=== PATIENT | male | born 1945 | race Caucasian/White ===

== ENCOUNTER → 2016-11-26 | Day surgery (SDC) | payer MEDICARE, OTHER ==
[~2016-11-26] VITALS: Ht 190.5 cm; Wt 145.6 kg
[~2016-11-26] MED LIST: ASPI325T32 PO; ATOR40TA69 PO; AZIT500T5 PO; CHOL500050 PO; CLOP75TA28 PO; GLPZ5T PO; IPRA4AER IH; Lactated Ringer's 1,000 ML IV SCH; METO25TA6 PO; MOME13HF IH; MeTOProlol 1 mg/mL 5 mL Inj ONE; MetoCLOpramide 5 mg/mL 2 mL Inj IVPUSH PRN; NITR0.4T SL; Ondansetron 2 mg/mL 2 mL Inj IVPUSH PRN; PANT40TA3 PO; POTA2TAB16 PO; Propofol 10,000 mCg/mL 20 mL Inj ONE; SILD20TA14 PO; TAMS0.4C29 PO; calcium/mag/zinc PO; testosterone TOPICAL
[2016-11-26 08:42] VITALS: BP 130/79; PULSE 61; RESP 17; O2SAT 95
--- NOTE | 2016-11-26 09:22 | PCM.HPANE ---
Patient Data Date of Service: Nov 26, 2016 Surgeon Admitting Provider: Attending Provider:Jenny Osorio MD Primary Care Physician:Vikas Castellano DO Other Provider:Gloria Montes Anesthesia Reason for Visit History Of Adenomatous Polyp Of Colon Ht/WT & BMI Height (Feet): 6 Height (Inches): 3 Weight (Kilograms): 145.6 Body Mass Index 39.00 Allergies Coded Allergies: No Known Allergies (Verified Allergy, Unknown, 09/06/14) Past Anesthesia History Anesthesia History: Denies:: Abnormal Airway, Anesthesia Reactions, Difficult Intubation, Fam Anesthesia Reaction, Fam Malignant Hypertherm, Malignant Hyperthermia Diabetes History Hx Diabetes?: Yes (DIET CONTROLLED PER PT) Current Bedside Blood Glucose: 185 MRSA MRSA: Yes (NECK-8 YRS AGO ) Medications Blood Thinner: Aspirin, Plavix Last Dose Blood Thinner: Nov 21, 2016 Home Meds Incl Beta Bernardo: Yes (METOPROLOL) Active Scripts Aspirin 325 Mg Rietnk886 Mg PO DAILY CHEST PAIN #90 BOTTLE Ref 3 Prov:Mayito Cazares MD 01/04/16 Nitroglycerin SL (Nitrostat)0.4 Mg Tab.subl0.4 Mg SL Q5MIN PRN For Chest Pain IF SBP > 90 #25 TAB.SL Ref 2 DO NOT TAKE VIAGRA OR NITROGLYCERIN SUBLINGUAL TAB WITHIN 24 HOURS OF EACH OTHER. MAY CAUSE ! Prov:Mayito Cazares MD 01/04/16 Metoprolol Tartrate 25 Mg Hrkgzi96 Mg PO BID #180 TABLET Ref 3 Prov:Mayito Cazares MD 01/04/16 Atorvastatin Calcium 40 Mg Tpkeix97 Mg PO HS #90 TABLET Ref 3 Prov:Mayito Cazares MD 01/04/16 Clopidogrel 75 Mg Ydemuo46 Mg PO DAILY #90 TABLET Ref 3 Prov:Mayito Cazares MD 01/04/[address] 40 Mg Tablet.dr40 Mg PO DAILY Ref 0 11/26/16 Glipizide 5 Mg Tablet5 Mg PO DAILY 30 Days 11/26/16 Azithromycin 500 Mg Qfsaid503 Mg PO every other day Ref 0 01/02/16 Cholecalciferol (Vitamin D3) (Vitamin D3)50,000 Unit Sktlcgm12,000 Unit PO WEEKLY 01/02/16 [testosterone] No Conflict Check0.5 Topical Daily 01/02/16 Mometasone/Formoterol (Dulera 200 Mcg/5 Mcg Inhaler)13 Gm Hfa.aer.ad2 Puffs IH DAILY 01/02/16 [calcium/mag/zinc] No Conflict Check2-3 Tab PO 3-4x/wk 01/02/16 Tamsulosin ER 0.4 Mg Cap.er.24h0.4 Mg PO DAILY 30 Days Ref 0 09/06/14 Sildenafil Citrate (Sildenafil)20 Mg Lbldls62 Mg PO 09/06/14 Potassium Gluconate 500 Mg Uhgndu204 Mg PO prn 09/06/14 Albuterol/Ipratropium (Combivent Respimat Inhal [place])120 Spr/4 Gm Inhaler2 Puff IH QID/PRN #1 INH Ref 0 09/06/14 History History of ENT Problems?: Yes HEENT History: Positive for:: Cataracts (NOT ADVANCED) Denies:: Abnormal Airway Difficult Intubation Dysphagia Hearing Problem Denture Type: None Teeth Condition: Within Normal Limits Hx of Heart Problems?: Yes Cardiovascular History: Positive for:: Chest Pain Denies:: AICD Atrial Fibrillation Hypertension Pacemaker Valvular Heart Disease Other History/Comments discussing with cardiology prior to preceding in setting of PVCs in [facility] and stents placed <12 months Hx of Respiratory Problem?: Yes Respiratory History: Positive for:: Asthma (RARELY AN ISSUE) Denies:: COPD Cough Hemoptysis Pneumonia Tuberculosis Other History/Comment workup for ILD ongoing Hx Neurologic Problems?: No Neurological History: Denies:: CVA Hx of GI Problems?: Yes Hx of Problems?: No Hx Musculoskeletal Problems?: No Musculoskeletal History: Denies:: Joint Replacement Hx of Psycho/Social Problems?: No Psycho Social History: Denies:: Anxiety Hx Depression Hx Surgeries?: Yes (VASECTOMY , ANGIO PLASTY / STENTS) Hx Any Other Health Problems?: Yes Other History: Positive for:: Cancer (SKIN) History Blood Transfusions: Denies:: Blood Transfusions Hx Diabetes: Yes (DIET CONTROLLED PER PT)Bedside Blood Glucose: 185 Hx Alcohol Use: Yes (OCCASIONALLY ) Smoking Status: Never Smoker Stop/Bang Treated for Sleep Apnea?: Yes Do You Have a CPAP Machine?: No S-Snoring: Do You Snore Loudly: No T-Tired: feel tired, fatigued: No O-Obsered: Observed not breath: No P-Blood Pressure: treated: Yes B- Body Mass Index > 35 kg/m2: Yes A- Age over 50: Yes N- Neck Large Circumference: Yes WESLEY Risk Assessment: High Risk, =/>3 Yes Risk Assessment Category Category 1A: Patient has history of documented sleep apnea, and HAS NOT received any narcotic, sedative or anesthesia administration during this stay. Category 1B: Patient has history of documented sleep apnea, and HAS received any narcotic , sedative or anesthesia administration during this stay Category 2: Patient has SUSPECTED Obstructive Sleep Apnea, and HAS received any narcotic , sedative or anesthesia administration during this stay. Category 3: Patient has SUSPECTED Obstructive Sleep Apnea and HAS NOT received narcotic, sedative or anesthesia administration during this stay. Category 4: Outpatient in Procedural Areas with known sleep apnea or who screen positive for High Risk via the STOP/BANG questionnaire. Exam Exam Vital Signs Vital Signs Date Time Temp Pulse Resp B/P Pulse Ox O2 Delivery O2 Flow Rate FiO2 11/26/16 08:42 36.5 61 17 130/79 95 Room Air General Appearance: Alert, Oriented X3 HEENT/AIRWAY: MP 1 Lungs: Clear to Auscultation Heart: Exam Unremarkable Meds/Labs/Diagnostics Bedside Blood Glucose: 185 Plan Impression Patient chart reviewed, patient interviewed and anesthestic plan with risks, benefits, and alternatives discussed, and informed consent obtained. NPO per Anesth. Guidelines: Yes ASA Physical Status: ASA3 Severe Disease Anesthetic Plan: MAC Bene/Risks/Altern/Consents: Yes HP Complete Prior to Induction: Yes Anders Jackson MD Nov 26, 2016 09:22
[2016-11-26 09:53] VITALS: BP 98/72; PULSE 60; RESP 14; O2SAT 96
[2016-11-26 10:11] VITALS: BP 142/78; PULSE 60; RESP 14; O2SAT 95
[2016-11-26 10:13] VITALS: BP 139/78; PULSE 57; RESP 14; O2SAT 96
--- NOTE | 2016-11-26 10:20 | PCM.ANEP1 ---
Post Anesthesia PACU Phase 1 Assessment Vital Signs Vital Signs Date Time Temp Pulse Resp B/P Pulse Ox O2 Delivery O2 Flow Rate FiO2 11/26/16 10:13 57 14 139/78 96 Room Air 11/26/16 10:11 60 14 142/78 95 Room Air 11/26/16 09:53 60 14 98/72 96 Room Air 11/26/16 08:42 36.5 61 17 130/79 95 Room Air Anesthetic Administered: MAC Level of Alertness: Awake, talking Pain: No Nausea or Vomiting: No CV Function & Hydration Stable: Yes Airway Device: Oxygen Delivery: Room Air Lungs: Clear to Auscultation PACU Phase 2 Assessment Complications: No Follow up Care: N/A Patient Instructions Provided: N/A Anders Jackson MD Nov 26, 2016 10:20
--- NOTE | 2016-11-26 10:33 | ENDO ---
[address] [address] ENDOSCOPY PROCEDURE PATIENT: LUCY ERNANDEZ : 1945 MR#: [id number] ADMIT: 11/26/2016 JOB ID: [id number] TYPE OF PROCEDURE: Colonoscopy INDICATION: Patient with a history of adenomatous colon polyps. The patient's ASA classification, Mallampati score, and medications as per Anesthesia note. INSTRUMENT USED: [id number] PREP QUALITY: Good. PROCEDURE DETAILS: After informed consent was obtained, the patient was brought into the GI suite, where he was placed on oxygen via nasal cannula and monitored with continuous pulse oximeter, telemetry, and blood pressure monitoring. A time-out was performed. Then, he was placed in a left lateral decubitus position and medications were administered for sedation. Digital rectal exam was performed, which was limited secondary to patient's body habitus, but otherwise unremarkable. The colonoscope was then inserted into the rectum and advanced under direct visualization to the cecum, which was identified by the presence of the ileocecal valve and appendiceal orifice. Once the cecum was reached, the colonoscope was withdrawn back to the rectum. Mucosa and lumen were examined. In the rectum, retroflexion was performed. Following retroflexion, remaining air in the rectum was suctioned, and procedure was completed. FINDINGS: 1. In the cecum in the transverse colon, there was an approximately 4 mm sessile polyp that was removed with a cold snare. 2. Scattered diverticula were seen throughout the left side of the colon. IMPRESSION: 1. Transverse colon polyp. 2. Left-sided diverticulosis. RECOMMENDATIONS: 1. Fiber rich diet. 2. Repeat colonoscopy in five years. COMPLICATIONS: None. ESTIMATED BLOOD LOSS: Less than 5 mL. Cc: Vikas Castellano
--- NOTE | 2016-12-02 08:30 | PATH ---
SURGICAL PATHOLOGY Attending Physician:Brady Calle CASE STATUS: Signed Out PATIENT NAME: LUCY ERNANDEZ PID: [id number] : 1945 DATE COLLECTED:11/26/2016 00:00 SPECIMEN: Colon, Polyp CLINICAL HISTORY: 1). TRANSVERSE POLYP X 1 FINAL DIAGNOSIS: Transverse Colon, Polyp, Biopsy: Portions of tubular adenoma x2; negative for high-grade dysplasia. ICD10: K63.5 GROSS DESCRIPTION: The specimen is received in one formalin filled container labeled with the patient's name, sublabeled "transverse polyp" and consists of 2 portions of tissue which aggregate to 0.3 x 0.3 x 0.2 CM. The specimen is entirely submitted in cassette. 11/27/2016DC ICD-9 CODES: CPT CODES: 1: 18855 Electronically Signed Out Maricruz Ochoa MD [facility] Pathology [facility] [address], [place] [address] Technical component performed at [facility], [facility] [address], [place], [address]
== END | disposition home or self-care (01) ==
LOC: END 00:30
PROVIDERS: ATTEND Internal Medicine Gastroenterology
DX: Z12.11 Encounter for screening for malignant neoplasm of colon (principal); Z86.010 Personal history of colon polyps; D12.3 Benign neoplasm of transverse colon; K57.30 Diverticulosis of large intestine without perforation or abscess without bleeding; I10 Essential (primary) hypertension; I25.10 Atherosclerotic heart disease of native coronary artery without angina pectoris; E11.9 Type 2 diabetes mellitus without complications; E78.5 Hyperlipidemia, unspecified; K21.9 Gastro-esophageal reflux disease without esophagitis; J84.9 Interstitial pulmonary disease, unspecified; J45.909 Unspecified asthma, uncomplicated; M19.90 Unspecified osteoarthritis, unspecified site; E66.3 Overweight; Z95.5 Presence of coronary angioplasty implant and graft; Z85.828 Personal history of other malignant neoplasm of skin; Z79.82 Long term (current) use of aspirin; Z68.39 Body mass index [BMI] 39.0-39.9, adult
CPT/HCPCS: 45385; J2704; J7120